=== PATIENT | female | born 2000 | race Two or more races ===

== ENCOUNTER 2024-07-04 17:36 | Emergency (ER) | payer OTHER ==
[~2024-07-04] VITALS: Ht 167.6 cm; Wt 63.5 kg
[2024-07-04] MEDS ORDERED: [UNRECOGNIZED DRUG - CODE] (17:53)
[2024-07-04] MEDS ORDERED: ONDANSETRON ODT 4 MG TAB.RAPDIS ONE (18:21)
[2024-07-04] MEDS ORDERED: HYDROCODONE/APAP 10-325 MG TABLET ONE (18:21)
[2024-07-04] MEDS ORDERED: HYDR-3980 PO (18:25)
[2024-07-04] MEDS ORDERED: ONDA4TAB5 PO (18:25)
[2024-07-04] MEDS: HYDROCODONE/APAP 10-325 MG TABLET PO ONE (18:36)
[2024-07-04] MEDS: ONDANSETRON ODT 4 MG TAB.RAPDIS SL ONE (18:37)
[2024-07-04 18:52] VITALS: BP 112/68; TEMP 100.1; O2SAT 99
== END 2024-07-04 18:57 | disposition home or self-care (01) ==
LOC: ER 17:36
DX: J11.1 Influenza due to unidentified influenza virus with other respiratory manifestations (principal); Q61.3 Polycystic kidney, unspecified; Z79.3 Long term (current) use of hormonal contraceptives
CPT/HCPCS: A4606; A4663; Q0162